=== PATIENT | male | born 1985 | race Caucasian/White ===

== ENCOUNTER 2020-03-29 10:31 | Emergency (ER) | payer OTHER ==
[2020-03-29 10:40] VITALS: BP 148/92; PULSE 75; TEMP 98.8; BMI 26.6
== END 2020-03-29 12:55 | disposition home or self-care (01) ==
LOC: FER 10:31
DX: R10.30 Lower abdominal pain, unspecified (principal); M54.5 Low back pain
CPT/HCPCS: 76775-TC; 76870-TC; 81003; 87086; 99285-25